=== PATIENT | male | born 1945 | race Two or more races ===

== ENCOUNTER 2022-09-11 20:21 | Inpatient (IN) | payer OTHER, MEDICAID ==
[~2022-09-11] VITALS: Ht 165.1 cm; Wt 72.5 kg
[2022-09-11 21:48] LABS: Basophils # (auto) 0.1 10 ^3/uL (0-0.2); Basophils % (auto) 0.8 % (0.0-2.0); Eosinophils # (auto) 0.7 10 ^3/uL (0-0.8); Eosinophils % (auto) 8.3 % (0.0-7.0); Hematocrit 40.5 % (41.0-53.0); Hemoglobin 13.3 g/dL (13.5-17.5); Lymphocytes # (auto) 2.2 10 ^3/uL (0.4-5.4); Lymphocytes % (auto) 26.9 % (10.0-50.0); Mean Corpuscular Hemoglobin 29.8 pg (28.0-32.0); Mean Corpuscular Hgb Conc. 32.9 g/dL (32.0-36.0); Mean Corpuscular Volume 90.6 fL (80.0-100.0); Monocytes # (auto) 0.8 10 ^3/uL (0-1.3); Monocytes % (auto) 9.2 % (0.0-12.0); Neutrophils # (auto) 4.6 10 ^3/uL (1.6-8.6); Neutrophils % (auto) 54.8 % (37.0-80.0); Nucleated Red Blood Cells % 0.3 %; Red Blood Cells 4.47 10^6/uL (4.5-5.90); Red Cell Distribution Width 13.9 % (11.8-14.3); White Blood Cell 8.3 10^3/uL (4.4-10.8)
[2022-09-11 22:04] LABS: Albumin 3.2 g/dL (3.4-5.0); Magnesium 2.2 mg/dL (1.6-2.6); Potassium 3.6 mmol/L (3.5-5.1)
[2022-09-11 22:06] LABS: BUN/Creatinine Ratio 9.1
[2022-09-11 22:09] LABS: Bilirubin, Total 0.4 mg/dL (0.2-1.0); INR 0.98 (0.9-1.15); Partial Thromboplastin Time 27.3 sec (24.6-33.4); Total Protein 6.2 g/dL (6.4-8.2)
[2022-09-12] MEDS ORDERED: IPRATROPIUM BROM 0.5 MG/2.5ML INH SOL NEB ONE (03:45)
[2022-09-12] MEDS ORDERED: ALBUTEROL SULF 2.5 MG/0.5ML(0.5%) NEB SOLN NEB ONE (03:45)
[2022-09-12] MEDS ORDERED: DexAMETHasone SOD PHOS 10MG/1ML VIAL INJ IV ONE (03:45)
[2022-09-12] MEDS ORDERED: MORPHINE SULFATE 4 MG/ML SYR/VIAL IV ONE (03:45)
[2022-09-12] MEDS ORDERED: ONDANSETRON HCL 4 MG/2 ML VIAL IV ONE (03:45)
[2022-09-12] MEDS ORDERED: ALBUTEROL MEDNEB 2.5 mg/3ml NEB ONE ×2 (03:55→06:00)
[2022-09-12 04:05] LABS: Urine Bacteria NONE SEEN /hpf (None Seen); Urine Blood Negative /uL (Negative); Urine Mucus FEW (None Seen); Urine Specific Gravity 1.032 (1.001-1.035); Urine WBC 3 /hpf (0 - 3)
[2022-09-12] MEDS ORDERED: DEXTROSE (50%) 50ML SYRG IV PRN (05:00)
[2022-09-12] MEDS ORDERED: cloNIDine HCL 0.1 MG TAB PO PRN (05:00)
[2022-09-12] MEDS ORDERED: ONDANSETRON HCL 4 MG/2 ML VIAL IV PRN (05:00)
[2022-09-12] MEDS ORDERED: TEMAZEPAM 15 MG CAP PO PRN (05:00)
[2022-09-12] MEDS: ALBUTEROL SULF 2.5 MG/0.5ML(0.5%) NEB SOLN NEB PRN (06:03)
[2022-09-12] MEDS: ACCU-CHEK COMFORT CURVE STRIP VI SCH ×4 (06:32→21:39)
[2022-09-12] MEDS: InsuLIN REG 1unit/0.01ml Soln (100units/ml) SC SCH ×4 (06:40→21:53)
[2022-09-12 07:05] VITALS: BP 125/48
[2022-09-12] MEDS: PANTOPRAZOLE 40 MG TAB PO SCH (09:10)
[2022-09-12] MEDS: ENOXAPARIN SOD 40 MG/0.4 ML SYRINGE SC SCH (09:10)
[2022-09-12] MEDS: ACETAMINOPHEN 325 MG TAB PO PRN (09:10)
[2022-09-12] MEDS: LISINOPRIL 10 MG TAB PO SCH (09:10)
[2022-09-12] MEDS: ASPirin 81 mg TAB PO SCH (09:10)
[2022-09-12 10:48] VITALS: BP 144/50
[2022-09-12] MEDS ORDERED: InsuLIN REG 1unit/0.01ml Soln (100units/ml) SC ONE (15:20)
[2022-09-12 16:30] VITALS: BP 123/55
[2022-09-12] MEDS: HYDROcodone-ACET 5/325MG TAB PO PRN ×2 (16:37→21:39)
[2022-09-12] MEDS: ATORVASTATIN 20 MG TAB PO SCH (21:39)
[2022-09-12] MEDS: INSULIN LANTUS (GLARGINE) 1 /0.01ml (100units/ml) SC SCH (21:53)
[2022-09-12 22:00] VITALS: BP 147/63
[2022-09-13 05:00] VITALS: BP 139/67
[2022-09-13] MEDS: ACCU-CHEK COMFORT CURVE STRIP VI SCH ×4 (06:19→21:44)
[2022-09-13] MEDS: InsuLIN REG 1unit/0.01ml Soln (100units/ml) SC SCH ×4 (06:26→21:50)
[2022-09-13 06:28] LABS: Basophils # (auto) 0 10 ^3/uL (0-0.2); Basophils % (auto) 0.2 % (0.0-2.0); Eosinophils # (auto) 0 10 ^3/uL (0-0.8); Eosinophils % (auto) 0.4 % (0.0-7.0); Hematocrit 41.3 % (41.0-53.0); Hemoglobin 13.9 g/dL (13.5-17.5); Lymphocytes % (auto) 17.3 % (10.0-50.0); Mean Corpuscular Hemoglobin 29.9 pg (28.0-32.0); Mean Corpuscular Hgb Conc. 33.6 g/dL (32.0-36.0); Monocytes # (auto) 0.8 10 ^3/uL (0-1.3); Monocytes % (auto) 6.9 % (0.0-12.0); Neutrophils # (auto) 8.8 10 ^3/uL (1.6-8.6); Neutrophils % (auto) 75.2 % (37.0-80.0); Nucleated Red Blood Cells % 0.1 %; Red Blood Cells 4.65 10^6/uL (4.5-5.90); Red Cell Distribution Width 13.9 % (11.8-14.3); White Blood Cell 11.8 10^3/uL (4.4-10.8)
[2022-09-13 06:40] LABS: Potassium 4.3 mmol/L (3.5-5.1)
[2022-09-13 06:44] LABS: Albumin 3.3 g/dL (3.4-5.0); BUN/Creatinine Ratio 17.8; Calcium 8.9 mg/dL (8.5-10.1)
[2022-09-13 06:47] LABS: Bilirubin, Total 0.8 mg/dL (0.2-1.0); Total Protein 6.3 g/dL (6.4-8.2)
[2022-09-13 09:00] VITALS: BP 120/47
[2022-09-13] MEDS ORDERED: ADENOSINE 60 MG in GIVE UN-DILUTED 0 ML IV ONE (09:15)
[2022-09-13] MEDS: HYDROcodone-ACET 5/325MG TAB PO PRN (10:05)
[2022-09-13] MEDS ORDERED: ALBUTEROL MEDNEB 2.5 mg/3ml NEB ONE (10:44)
[2022-09-13] MEDS: ALBUTEROL SULF 2.5 MG/0.5ML(0.5%) NEB SOLN NEB PRN (10:45)
[2022-09-13] MEDS: ASPirin 81 mg TAB PO SCH (11:27)
[2022-09-13] MEDS: PANTOPRAZOLE 40 MG TAB PO SCH (11:28)
[2022-09-13] MEDS: ENOXAPARIN SOD 40 MG/0.4 ML SYRINGE SC SCH (11:28)
[2022-09-13] MEDS: LISINOPRIL 10 MG TAB PO SCH (11:28)
[2022-09-13 11:35] LABS: Hepatitis C Antibody Negative (Negative)
[2022-09-13] MEDS ORDERED: KETOROLAC TROMETH 30 MG/ML 1ML VIAL IV ONE (11:45)
[2022-09-13 13:00] VITALS: BP 149/56
[2022-09-13 17:00] VITALS: BP 119/53
[2022-09-13] MEDS: ATORVASTATIN 20 MG TAB PO SCH (21:44)
[2022-09-13] MEDS: INSULIN LANTUS (GLARGINE) 1 /0.01ml (100units/ml) SC SCH (21:51)
[2022-09-13 22:00] VITALS: BP 135/53
[2022-09-13] MEDS: KETOROLAC TROMETH 30 MG/ML 1ML VIAL IV PRN (22:00)
[2022-09-14] VITALS (9 sets, daily range): BP systolic 103–145; BP diastolic 44–70
[2022-09-14] MEDS: ACCU-CHEK COMFORT CURVE STRIP VI SCH ×4 (06:15→21:29)
[2022-09-14] MEDS: InsuLIN REG 1unit/0.01ml Soln (100units/ml) SC SCH ×4 (06:15→21:38)
[2022-09-14 06:24] LABS: BUN/Creatinine Ratio 24.8; Calcium 8.5 mg/dL (8.5-10.1); Potassium 4.4 mmol/L (3.5-5.1)
[2022-09-14 06:30] LABS: Basophils # (auto) 0.1 10 ^3/uL (0-0.2); Basophils % (auto) 0.8 % (0.0-2.0); Eosinophils # (auto) 0.5 10 ^3/uL (0-0.8); Eosinophils % (auto) 4.8 % (0.0-7.0); Hematocrit 41.9 % (41.0-53.0); Hemoglobin 14.5 g/dL (13.5-17.5); Lymphocytes # (auto) 3.3 10 ^3/uL (0.4-5.4); Lymphocytes % (auto) 34.5 % (10.0-50.0); Mean Corpuscular Hemoglobin 30.8 pg (28.0-32.0); Mean Corpuscular Hgb Conc. 34.6 g/dL (32.0-36.0); Mean Corpuscular Volume 88.9 fL (80.0-100.0); Monocytes # (auto) 0.7 10 ^3/uL (0-1.3); Monocytes % (auto) 7.2 % (0.0-12.0); Neutrophils # (auto) 5.1 10 ^3/uL (1.6-8.6); Neutrophils % (auto) 52.7 % (37.0-80.0); Nucleated Red Blood Cells % 0.2 %; Red Blood Cells 4.72 10^6/uL (4.5-5.90); Red Cell Distribution Width 14.3 % (11.8-14.3); White Blood Cell 9.6 10^3/uL (4.4-10.8)
[2022-09-14 06:40] LABS: INR 0.95 (0.9-1.15); Partial Thromboplastin Time 27.2 sec (24.6-33.4)
[2022-09-14] MEDS: ACETAMINOPHEN 325 MG TAB PO PRN (08:00)
[2022-09-14] MEDS: LISINOPRIL 10 MG TAB PO SCH (10:00)
[2022-09-14] MEDS: ASPirin 81 mg TAB PO SCH (10:00)
[2022-09-14] MEDS: ENOXAPARIN SOD 40 MG/0.4 ML SYRINGE SC SCH (10:00)
[2022-09-14] MEDS ORDERED: LIDOCAINE 2%HCL (LOCAL ANESTH.) INJ 20ML MDV ONE (10:27)
[2022-09-14] MEDS ORDERED: VERAPAMIL 2.5MG/ML INJ 2ML VIAL IV ONE (10:27)
[2022-09-14] MEDS ORDERED: fentaNYL CITRATE 100 MCG/2 ML VL ONE ×2 (10:27→10:55)
[2022-09-14] MEDS ORDERED: MIDAZOLAM HCL 2MG/2ML 2ml VIAL (1mg/ml) ONE ×2 (10:27→10:56)
[2022-09-14] MEDS ORDERED: SODIUM CHL 0.9% 50 ML ONE (10:27)
[2022-09-14] MEDS ORDERED: ANGIOMAX 250 MG VIAL IV ONE (10:27)
[2022-09-14] MEDS ORDERED: IODIXANOL 320MG/ML 100ML BTL IV ONE (10:28)
[2022-09-14] MEDS ORDERED: HEPARIN SODIUM (PORCINE) 5000 UNITS/ML 1ML VIAL ONE (10:33)
[2022-09-14] MEDS ORDERED: METO25TA5 PO (10:49)
[2022-09-14] MEDS ORDERED: BENA20TA14 PO (10:49)
[2022-09-14] MEDS ORDERED: ATOR10TA52 PO (10:51)
[2022-09-14] MEDS ORDERED: PRED10TA PO (10:51)
[2022-09-14] MEDS ORDERED: ESCI5TAB PO (10:51)
[2022-09-14] MEDS ORDERED: ATROPINE SULF 1 MG/10ml SYR ONE (10:57)
[2022-09-14] MEDS: HYDROcodone-ACET 5/325MG TAB PO PRN (19:02)
[2022-09-14] MEDS: ATORVASTATIN 20 MG TAB PO SCH (21:29)
[2022-09-14] MEDS: INSULIN LANTUS (GLARGINE) 1 /0.01ml (100units/ml) SC SCH (21:49)
[2022-09-14] MEDS ORDERED: ALBUTEROL MEDNEB 2.5 mg/3ml NEB ONE (22:00)
[2022-09-14] MEDS: ALBUTEROL SULF 2.5 MG/0.5ML(0.5%) NEB SOLN NEB PRN (22:00)
[2022-09-15] VITALS (7 sets, daily range): BP systolic 114–138; BP diastolic 56–70
[2022-09-15] MEDS: InsuLIN REG 1unit/0.01ml Soln (100units/ml) SC SCH ×4 (06:22→21:50)
[2022-09-15] MEDS: ACCU-CHEK COMFORT CURVE STRIP VI SCH ×4 (06:23→21:49)
[2022-09-15] MEDS: KETOROLAC TROMETH 30 MG/ML 1ML VIAL IV PRN ×2 (06:24→19:59)
[2022-09-15] MEDS: ASPirin 81 mg TAB PO SCH (09:52)
[2022-09-15] MEDS: LISINOPRIL 10 MG TAB PO SCH (09:52)
[2022-09-15] MEDS: ENOXAPARIN SOD 40 MG/0.4 ML SYRINGE SC SCH (09:52)
[2022-09-15] MEDS: NITROGLYCERIN 0.4 MG SL TAB SL PRN ×6 (13:00→23:44)
[2022-09-15] MEDS: MORPHINE SULFATE INJ 2 MG/ml SYRG IV PRN ×2 (13:15→23:56)
[2022-09-15] MEDS ORDERED: RANOLAZINE ER 500 MG TAB PO ONE (13:15)
[2022-09-15 13:59] LABS: BUN/Creatinine Ratio 17.5; Calcium 8.6 mg/dL (8.5-10.1); Potassium 4.5 mmol/L (3.5-5.1)
[2022-09-15 14:35] LABS: Cholesterol 149 mg/dL (< 200)
[2022-09-15 14:36] LABS: HDL Cholesterol 41 mg/dL (40-59); LDL Cholesterol 96 mg/dL (< 100); Triglycerides 132 mg/dL (< 150)
[2022-09-15] MEDS: RANOLAZINE ER 500 MG TAB PO SCH (21:35)
[2022-09-15] MEDS: ATORVASTATIN 20 MG TAB PO SCH (21:36)
[2022-09-15] MEDS: HYDROcodone-ACET 5/325MG TAB PO PRN (21:37)
[2022-09-15] MEDS: INSULIN LANTUS (GLARGINE) 1 /0.01ml (100units/ml) SC SCH (21:52)
[2022-09-16 04:54] VITALS: BP 142/65
[2022-09-16] MEDS: InsuLIN REG 1unit/0.01ml Soln (100units/ml) SC SCH ×4 (06:55→21:43)
[2022-09-16] MEDS: ACCU-CHEK COMFORT CURVE STRIP VI SCH ×4 (06:55→21:33)
[2022-09-16 08:51] VITALS: BP 134/77
[2022-09-16] MEDS: LISINOPRIL 10 MG TAB PO SCH (09:54)
[2022-09-16] MEDS: ASPirin 81 mg TAB PO SCH (09:54)
[2022-09-16] MEDS: RANOLAZINE ER 500 MG TAB PO SCH ×2 (09:54→21:33)
[2022-09-16] MEDS: ENOXAPARIN SOD 40 MG/0.4 ML SYRINGE SC SCH (09:55)
[2022-09-16 13:00] VITALS: BP 108/60
[2022-09-16] MEDS ORDERED: FUROSEMIDE 40 MG/4 ML VIAL IV ONE (13:45)
[2022-09-16] MEDS ORDERED: ALBUTEROL MEDNEB 2.5 mg/3ml NEB NEB PRN (14:00)
[2022-09-16 17:00] VITALS: BP 116/47
[2022-09-16] MEDS: KETOROLAC TROMETH 30 MG/ML 1ML VIAL IV PRN (20:30)
[2022-09-16] MEDS: ATORVASTATIN 20 MG TAB PO SCH (21:32)
[2022-09-16] MEDS: INSULIN LANTUS (GLARGINE) 1 /0.01ml (100units/ml) SC SCH (21:34)
[2022-09-16 22:00] VITALS: BP 133/57
[2022-09-17] VITALS (44 sets, daily range): BP systolic 93–149; BP diastolic 33–116
[2022-09-17] MEDS: FUROSEMIDE 20 MG/2 ML VIAL IV SCH ×2 (05:34→18:30)
[2022-09-17] MEDS: KETOROLAC TROMETH 30 MG/ML 1ML VIAL IV PRN (05:42)
[2022-09-17] MEDS: ACCU-CHEK COMFORT CURVE STRIP VI SCH ×4 (06:09→22:13)
[2022-09-17] MEDS: InsuLIN REG 1unit/0.01ml Soln (100units/ml) SC SCH ×5 (06:09→22:12)
[2022-09-17] MEDS: NITROGLYCERIN 0.4 MG SL TAB SL PRN (09:20)
[2022-09-17] MEDS ORDERED: NITROGLYCERIN 0.2MG/HR TOPICAL PATCH TD SCH (10:00)
[2022-09-17] MEDS ORDERED: IPRATROPIUM BROM 0.5 MG/2.5ML INH SOL NEB PRN (11:15)
[2022-09-17] MEDS: RANOLAZINE ER 500 MG TAB PO SCH ×2 (11:49→22:07)
[2022-09-17] MEDS: LISINOPRIL 10 MG TAB PO SCH (11:50)
[2022-09-17] MEDS: ASPirin 81 mg TAB PO SCH (11:52)
[2022-09-17] MEDS: ENOXAPARIN SOD 40 MG/0.4 ML SYRINGE SC SCH (11:52)
[2022-09-17] MEDS ORDERED: HEPARIN DRIP/D5W 100UNITS/ML 250 ML IV SCH (12:15)
[2022-09-17] MEDS: NITROGLYCERIN 50MG/250ML 250 ML IV SCH (13:18)
[2022-09-17 13:32] LABS: Basophils # (auto) 0.1 10 ^3/uL (0-0.2); Basophils % (auto) 0.9 % (0.0-2.0); Eosinophils # (auto) 0.2 10 ^3/uL (0-0.8); Eosinophils % (auto) 2.4 % (0.0-7.0); Hematocrit 44.4 % (41.0-53.0); Hemoglobin 15.4 g/dL (13.5-17.5); Lymphocytes # (auto) 1.8 10 ^3/uL (0.4-5.4); Lymphocytes % (auto) 22.4 % (10.0-50.0); Mean Corpuscular Hemoglobin 30.7 pg (28.0-32.0); Mean Corpuscular Hgb Conc. 34.7 g/dL (32.0-36.0); Mean Corpuscular Volume 88.5 fL (80.0-100.0); Monocytes # (auto) 0.6 10 ^3/uL (0-1.3); Monocytes % (auto) 7.1 % (0.0-12.0); Neutrophils # (auto) 5.5 10 ^3/uL (1.6-8.6); Neutrophils % (auto) 67.2 % (37.0-80.0); Nucleated Red Blood Cells % 0.4 %; Red Blood Cells 5.02 10^6/uL (4.5-5.90); White Blood Cell 8.2 10^3/uL (4.4-10.8)
[2022-09-17 13:51] LABS: INR 1.02 (0.9-1.15); Partial Thromboplastin Time 29.3 sec (24.6-33.4)
[2022-09-17 13:53] LABS: Albumin 3.3 g/dL (3.4-5.0); Anion Gap 8 (5-15); Blood Urea Nitrogen 25 mg/dL (7-18); Calcium 8.8 mg/dL (8.5-10.1); Carbon Dioxide 30 mmol/L (21-32); Chloride 101 mmol/L (98-107); GFR African American 76 mL/min; GFR Non-African American 63 mL/min; Glucose 101 mg/dL (74-106); Potassium 4.5 mmol/L (3.5-5.1); Sodium 139 mmol/L (136-145)
[2022-09-17 13:56] LABS: Alanine Aminotransferase 74 U/L (16-61); Alkaline Phosphatase 112 U/L (45-117); Aspartate Aminotransferase 33 U/L (15-37); Bilirubin, Total 0.7 mg/dL (0.2-1.0); Total Protein 6.6 g/dL (6.4-8.2)
[2022-09-17] MEDS ORDERED: LIDOCAINE 1% (LOCAL ANESTH.) PF 5ml SDV ID ONE (14:45)
[2022-09-17] MEDS ORDERED: HEPARIN SODIUM (PORCINE) 5000 UNITS/ML 1ML VIAL IV ONE (15:00)
[2022-09-17] MEDS: HEPARIN DRIP/D5W 100UNITS/ML 250 ML IV SCH (15:36)
[2022-09-17] MEDS: ACETAMINOPHEN 325 MG TAB PO PRN (15:54)
[2022-09-17] MEDS: HYDROcodone-ACET 5/325MG TAB PO PRN (20:45)
[2022-09-17] MEDS: INSULIN LANTUS (GLARGINE) 1 /0.01ml (100units/ml) SC SCH (22:00)
[2022-09-17] MEDS: ATORVASTATIN 20 MG TAB PO SCH (22:07)
[2022-09-17] MEDS: SODIUM CHLOR 0.9% PF (SALINE LOCK) 10ML VIAL/SYR IV SCH (22:14)
[2022-09-17 22:28] LABS: INR 1.07 (0.9-1.15)
[2022-09-17 22:36] LABS: Partial Thromboplastin Time 88.3 sec (24.6-33.4)
[2022-09-18] VITALS (93 sets, daily range): BP systolic 92–148; BP diastolic 38–94
[2022-09-18] MEDS: ACETAMINOPHEN 325 MG TAB PO PRN ×2 (00:31→09:03)
[2022-09-18 06:12] LABS: INR 1.06 (0.9-1.15); Partial Thromboplastin Time 62.9 sec (24.6-33.4)
[2022-09-18 06:18] LABS: BUN/Creatinine Ratio 19.7; Calcium 8.8 mg/dL (8.5-10.1); Potassium 4.5 mmol/L (3.5-5.1)
[2022-09-18] MEDS: FUROSEMIDE 20 MG/2 ML VIAL IV SCH ×2 (06:18→18:26)
[2022-09-18] MEDS: InsuLIN REG 1unit/0.01ml Soln (100units/ml) SC SCH ×3 (07:30→22:30)
[2022-09-18] MEDS: ACCU-CHEK COMFORT CURVE STRIP VI SCH ×4 (07:44→22:29)
[2022-09-18] MEDS: ASPirin 81 mg TAB PO SCH (10:00)
[2022-09-18] MEDS: RANOLAZINE ER 500 MG TAB PO SCH ×2 (10:09→21:53)
[2022-09-18] MEDS: LISINOPRIL 10 MG TAB PO SCH (10:09)
[2022-09-18] MEDS: SODIUM CHLOR 0.9% PF (SALINE LOCK) 10ML VIAL/SYR IV SCH ×2 (10:09→22:02)
[2022-09-18 12:10] LABS: INR 1.06 (0.9-1.15); Partial Thromboplastin Time 57.4 sec (24.6-33.4)
[2022-09-18] MEDS: NITROGLYCERIN 50MG/250ML 250 ML IV SCH (12:15)
[2022-09-18] MEDS: HYDROcodone-ACET 5/325MG TAB PO PRN (12:23)
[2022-09-18 18:10] LABS: INR 1.08 (0.9-1.15); Partial Thromboplastin Time 51.2 sec (24.6-33.4)
[2022-09-18] MEDS: HEPARIN DRIP/D5W 100UNITS/ML 250 ML IV SCH (18:28)
[2022-09-18] MEDS ORDERED: TEMAZEPAM 15 MG CAP PO PRN (21:00)
[2022-09-18] MEDS: METOCLOPRAMIDE HCL 10 MG TAB PO SCH (21:54)
[2022-09-18] MEDS: ATORVASTATIN 20 MG TAB PO SCH (21:54)
[2022-09-18] MEDS: DOCUSATE SOD 100 MG CAP PO SCH (21:55)
[2022-09-18] MEDS ORDERED: AMITRIPTYLINE HCL 10 MG TAB PO SCH (22:00)
[2022-09-18] MEDS: SODIUM CHLORIDE 0.9% 1,000 ML IV SCH (22:01)
[2022-09-18] MEDS: INSULIN LANTUS (GLARGINE) 1 /0.01ml (100units/ml) SC SCH (22:30)
[2022-09-19] VITALS (56 sets, daily range): BP systolic 91–149; BP diastolic 36–75
[2022-09-19 04:37] LABS: INR 1.03 (0.9-1.15); Partial Thromboplastin Time 50.9 sec (24.6-33.4)
[2022-09-19 04:45] LABS: Anion Gap 4 (5-15); BUN/Creatinine Ratio 20.4; Blood Urea Nitrogen 22 mg/dL (7-18); Calcium 8.3 mg/dL (8.5-10.1); Carbon Dioxide 28 mmol/L (21-32); Chloride 103 mmol/L (98-107); GFR African American 85 mL/min; GFR Non-African American 70 mL/min; Glucose 113 mg/dL (74-106); Sodium 135 mmol/L (136-145)
[2022-09-19] MEDS: FUROSEMIDE 20 MG/2 ML VIAL IV SCH (06:10)
[2022-09-19] MEDS: METOCLOPRAMIDE HCL 10 MG TAB PO SCH ×2 (06:11→14:00)
[2022-09-19] MEDS: ACCU-CHEK COMFORT CURVE STRIP VI SCH ×2 (06:47→11:49)
[2022-09-19] MEDS: InsuLIN REG 1unit/0.01ml Soln (100units/ml) SC SCH ×2 (06:47→11:58)
[2022-09-19] MEDS: SODIUM CHLORIDE 0.9% 1,000 ML IV SCH (06:47)
[2022-09-19] MEDS: ASPirin 81 mg TAB PO SCH (10:00)
[2022-09-19] MEDS ORDERED: DexAMETHasone INJECTION 10 MG in D5W 5% 50 ML IV SCH (10:00)
[2022-09-19] MEDS: DOCUSATE SOD 100 MG CAP PO SCH (10:27)
[2022-09-19] MEDS: RANOLAZINE ER 500 MG TAB PO SCH (10:27)
[2022-09-19] MEDS: LISINOPRIL 10 MG TAB PO SCH (10:28)
[2022-09-19] MEDS: SODIUM CHLOR 0.9% PF (SALINE LOCK) 10ML VIAL/SYR IV SCH (10:28)
[2022-09-19] MEDS: NITROGLYCERIN 50MG/250ML 250 ML IV SCH (12:15)
[2022-09-19] MEDS: HEPARIN DRIP/D5W 100UNITS/ML 250 ML IV SCH (13:00)
[2022-09-19] MEDS: MORPHINE SULFATE INJ 2 MG/ml SYRG IV PRN (14:29)
== END 2022-09-19 14:46 | disposition short-term general hospital (02) | DRG 281 ==
LOC: EDBD 20:21 → ER 20:30 → TELE 09-12 04:50 → TELE-E-ADS 09-12 10:05 → TELE-WESTW 09-12 10:24 → ICU WEST 09-17 12:57
PROVIDERS: ADMIT Nurse Practitioner; ATTEND Internal Medicine
PROC: 4A023N7 Measurement of Cardiac Sampling and Pressure, Left Heart, Percutaneous Approach (ICD-10-PCS; principal; 2022-09-14)
PROC: B211YZZ Fluoroscopy of Multiple Coronary Arteries using Other Contrast (ICD-10-PCS; 2022-09-14)
PROC: B215YZZ Fluoroscopy of Left Heart using Other Contrast (ICD-10-PCS; 2022-09-14)
PROC: 05HY33Z Insertion of Infusion Device into Upper Vein, Percutaneous Approach (ICD-10-PCS; 2022-09-17)
PROC: B54MZZA Ultrasonography of Right Upper Extremity Veins, Guidance (ICD-10-PCS; 2022-09-17)
DX: I21.4 Non-ST elevation (NSTEMI) myocardial infarction (principal); I69.354 Hemiplegia and hemiparesis following cerebral infarction affecting left non-dominant side; I25.110 Atherosclerotic heart disease of native coronary artery with unstable angina pectoris; E78.5 Hyperlipidemia, unspecified; E83.51 Hypocalcemia; E11.65 Type 2 diabetes mellitus with hyperglycemia; E88.09 Other disorders of plasma-protein metabolism, not elsewhere classified; E87.8 Other disorders of electrolyte and fluid balance, not elsewhere classified; D64.9 Anemia, unspecified; G43.109 Migraine with aura, not intractable, without status migrainosus; J44.9 Chronic obstructive pulmonary disease, unspecified; Z20.822 Contact with and (suspected) exposure to COVID-19; I10 Essential (primary) hypertension; Z79.84 Long term (current) use of oral hypoglycemic drugs; I25.2 Old myocardial infarction; Z79.82 Long term (current) use of aspirin; Z79.899 Other long term (current) drug therapy; Z82.49 Family history of ischemic heart disease and other diseases of the circulatory system; Z83.3 Family history of diabetes mellitus; Z95.1 Presence of aortocoronary bypass graft; Z95.5 Presence of coronary angioplasty implant and graft
CPT/HCPCS: 36415; 36569; 70450; 71045; 78452; 80048; 80053; 80061; 81001; 82962; 83036; 83735; 83880; 84443; 84484; 85025; 85379; 85610; 85730; 86803; 87081; 87340; 87426; 93005; 93017; 93306; 93458; 94640; 96374; 99152; 99153; 99291; C1887; G0378; J0153; J1100; J1815; J1885; J2250; J2405; J7060; Q9967

== ENCOUNTER 2022-11-18 18:44 | Inpatient (IN) | payer OTHER, MEDICAID ==
[~2022-11-18] VITALS: Ht 160 cm; Wt 70.0 kg
[~2022-11-18 18:44] MED LIST: ATOR10TA52 PO; BENA20TA14 PO; ESCI5TAB PO; METO25TA5 PO; PRED10TA PO
[2022-11-19] MEDS ORDERED: DEXTROSE (50%) 50ML SYRG IV PRN (10:30)
[2022-11-19 13:00] VITALS: BP 141/72
[2022-11-19 13:06] VITALS: BP 136/78
[2022-11-19 13:08] VITALS: BP 141/72
[2022-11-19] MEDS: ACCU-CHEK COMFORT CURVE STRIP VI SCH ×3 (14:00→22:16)
[2022-11-19] MEDS: InsuLIN REG 1unit/0.01ml Soln (100units/ml) SC SCH ×3 (14:00→22:16)
[2022-11-19 14:45] VITALS: BP 132/79
[2022-11-19 17:03] VITALS: BP 136/78
[2022-11-19] MEDS: HYDROcodone-ACET 5/325MG TAB PO PRN (18:22)
[2022-11-19 22:00] VITALS: BP 146/69
[2022-11-19] MEDS: METOPROLOL TARTRATE 25 MG TAB PO SCH (22:15)
[2022-11-19 23:18] LABS: Folate (Folic Acid) 10.46 ng/mL (5.38-24)
[2022-11-20] MEDS: HYDROcodone-ACET 5/325MG TAB PO PRN ×2 (01:18→09:46)
[2022-11-20 05:14] VITALS: BP 133/54
[2022-11-20] MEDS: ACCU-CHEK COMFORT CURVE STRIP VI SCH ×4 (06:02→22:43)
[2022-11-20] MEDS: METOCLOPRAMIDE HCL 10 MG TAB PO SCH ×2 (06:02→14:45)
[2022-11-20] MEDS: InsuLIN REG 1unit/0.01ml Soln (100units/ml) SC SCH ×4 (06:03→22:45)
[2022-11-20 09:00] VITALS: BP 140/72
[2022-11-20] MEDS: METOPROLOL TARTRATE 25 MG TAB PO SCH ×2 (09:45→22:43)
[2022-11-20] MEDS ORDERED: ASPirin 81 mg TAB PO SCH (10:00)
[2022-11-20] MEDS ORDERED: DexAMETHasone INJECTION 10 MG in D5W 5% 50 ML IV SCH (10:00)
[2022-11-20 11:41] VITALS: BP 145/83
[2022-11-20 16:07] VITALS: BP 127/70
[2022-11-20] MEDS ORDERED: KETOROLAC TROMETH 30 MG/ML 1ML VIAL IV ONE (18:45)
[2022-11-20] MEDS: LOSARTAN POTASSIUM 25 MG TAB PO SCH (19:26)
[2022-11-20] MEDS: FUROSEMIDE 20 MG TAB PO SCH (19:27)
[2022-11-20] MEDS ORDERED: NAPROXEN 500 MG TAB PO PRN (20:30)
[2022-11-20] MEDS ORDERED: DexAMETHasone SOD PHOS 10MG/1ML VIAL INJ IV ONE (20:45)
[2022-11-20 21:24] LABS: Urine Bacteria NONE SEEN /hpf (None Seen); Urine Blood Negative /uL (Negative); Urine Specific Gravity 1.009 (1.001-1.035); Urine WBC <1 /hpf (0 - 3)
[2022-11-20 22:00] VITALS: BP 122/63
[2022-11-20] MEDS ORDERED: ATORVASTATIN 20 MG TAB PO SCH (22:00)
[2022-11-20] MEDS ORDERED: AMITRIPTYLINE HCL 10 MG TAB PO SCH (22:00)
[2022-11-20] MEDS: MEMANTINE HCL 5 MG TAB PO SCH (22:43)
[2022-11-20] MEDS: RANOLAZINE ER 500 MG TAB PO SCH (22:43)
[2022-11-21 05:00] VITALS: BP 132/62
[2022-11-21 05:35] LABS: Basophils # (auto) 0.1 10 ^3/uL (0-0.2); Basophils % (auto) 0.8 % (0.0-2.0); Eosinophils # (auto) 0 10 ^3/uL (0-0.8); Hemoglobin 15.1 g/dL (13.5-17.5); Lymphocytes # (auto) 1.2 10 ^3/uL (0.4-5.4); Mean Corpuscular Hemoglobin 28.3 pg (28.0-32.0); Mean Corpuscular Hgb Conc. 33.5 g/dL (32.0-36.0); Mean Corpuscular Volume 84.6 fL (80.0-100.0); Monocytes # (auto) 0.1 10 ^3/uL (0-1.3); Monocytes % (auto) 0.6 % (0.0-12.0); Neutrophils # (auto) 13.3 10 ^3/uL (1.6-8.6); Neutrophils % (auto) 90.6 % (37.0-80.0); Nucleated Red Blood Cells % 0.1 %; Red Blood Cells 5.32 10^6/uL (4.5-5.90); Red Cell Distribution Width 13.9 % (11.8-14.3); White Blood Cell 14.7 10^3/uL (4.4-10.8)
[2022-11-21 05:53] LABS: Potassium 4.9 mmol/L (3.5-5.1)
[2022-11-21 06:01] LABS: Albumin 3.3 g/dL (3.4-5.0); BUN/Creatinine Ratio 19.6 (10.0-20.0); Bilirubin, Total 0.6 mg/dL (0.2-1.0); CRP High Sensitivity 0.08 mg/dL (< 0.3); Calcium 9.9 mg/dL (8.5-10.1); Total Protein 6.5 g/dL (6.4-8.2)
[2022-11-21] MEDS: FUROSEMIDE 20 MG TAB PO SCH ×2 (06:03→18:00)
[2022-11-21] MEDS: ACCU-CHEK COMFORT CURVE STRIP VI SCH ×3 (06:03→17:00)
[2022-11-21] MEDS: InsuLIN REG 1unit/0.01ml Soln (100units/ml) SC SCH ×3 (06:04→17:00)
[2022-11-21 08:39] VITALS: BP 133/65
[2022-11-21] MEDS ORDERED: CLOPIDOGREL BISULFATE 75 MG TAB PO SCH (10:00)
[2022-11-21] MEDS ORDERED: DexAMETHasone INJECTION 10 MG in D5W 5% 50 ML IV SCH (10:00)
[2022-11-21] MEDS ORDERED: DexAMETHasone SOD PHOS 10MG/1ML VIAL INJ IV SCH (10:00)
[2022-11-21] MEDS: MEMANTINE HCL 5 MG TAB PO SCH (11:02)
[2022-11-21] MEDS: RANOLAZINE ER 500 MG TAB PO SCH (11:02)
[2022-11-21] MEDS: METOPROLOL TARTRATE 25 MG TAB PO SCH (11:02)
[2022-11-21 13:00] VITALS: BP 122/68
[2022-11-21 15:52] VITALS: BP 131/69
[2022-11-21] MEDS ORDERED: ESCI10TA PO (16:22)
[2022-11-21] MEDS ORDERED: RANO500T PO (16:22)
[2022-11-21] MEDS ORDERED: CLOP75TA70 PO (16:22)
[2022-11-21] MEDS ORDERED: DONE5TAB11 PO (16:22)
[2022-11-21] MEDS ORDERED: BENA20TA14 PO (16:22)
[2022-11-21] MEDS ORDERED: FURO1TAB31 PO (16:22)
[2022-11-21 17:11] VITALS: BP 133/65
[2022-11-21] MEDS: LOSARTAN POTASSIUM 25 MG TAB PO SCH (18:00)
== END 2022-11-21 18:25 | disposition home or self-care (01) | DRG 313 ==
LOC: EAST 11-19 13:10 → TELE-EAST 11-19 16:09
PROVIDERS: ADMIT Internal Medicine; ATTEND Hospitalist
DX: R07.89 Other chest pain (principal); G93.41 Metabolic encephalopathy; D64.9 Anemia, unspecified; E11.65 Type 2 diabetes mellitus with hyperglycemia; E78.5 Hyperlipidemia, unspecified; G30.9 Alzheimer's disease, unspecified; G43.109 Migraine with aura, not intractable, without status migrainosus; I50.9 Heart failure, unspecified; I25.10 Atherosclerotic heart disease of native coronary artery without angina pectoris; I11.0 Hypertensive heart disease with heart failure; J44.9 Chronic obstructive pulmonary disease, unspecified; K59.00 Constipation, unspecified; F01.50 Vascular dementia, unspecified severity, without behavioral disturbance, psychotic disturbance, mood disturbance, and anxiety; Z63.4 Disappearance and death of family member; Z79.82 Long term (current) use of aspirin; Z79.899 Other long term (current) drug therapy; Z82.49 Family history of ischemic heart disease and other diseases of the circulatory system; Z86.73 Personal history of transient ischemic attack (TIA), and cerebral infarction without residual deficits; Z88.6 Allergy status to analgesic agent; Z95.1 Presence of aortocoronary bypass graft; Z88.8 Allergy status to other drugs, medicaments and biological substances; Z98.61 Coronary angioplasty status
CPT/HCPCS: 36415; 70551; 80053; 81001; 82607; 82746; 82962; 84484; 85025; 85652; 86141; 87086; 95819; 97163; G0378; J1100; J1815; J1885; J7060

== ENCOUNTER 2024-05-18 09:34 | Inpatient (IN) | payer OTHER, MEDICAID ==
[~2024-05-18] VITALS: Ht 160 cm; Wt 66.5 kg
[~2024-05-18 09:34] MED LIST changes: +BENA-36 PO; -BENA20TA14 PO; +CLOP75TA70 PO; +DONE5TAB11 PO; +ESCI10TA PO; -ESCI5TAB PO; +FURO1TAB31 PO; +HYDR1CAP27 PO; +INSUINJ37 SC; -PRED10TA PO; +QUET50TA81 PO; +RANO500T PO
[2024-05-18 09:50] VITALS: RESP 16
[2024-05-18 10:00] LABS: Basophils # (auto) 0.1 10 ^3/uL (0-0.2); Basophils % (auto) 1.1 % (0.0-2.0); Eosinophils # (auto) 0.2 10 ^3/uL (0-0.8); Eosinophils % (auto) 1.5 % (0.0-7.0); Hematocrit 50.2 % (41.0-53.0); Hemoglobin 17.4 g/dL (13.5-17.5); Lymphocytes # (auto) 2.8 10 ^3/uL (0.4-5.4); Lymphocytes % (auto) 26.6 % (10.0-50.0); Mean Corpuscular Hemoglobin 30.8 pg (28.0-32.0); Mean Corpuscular Hgb Conc. 34.5 g/dL (32.0-36.0); Mean Corpuscular Volume 89.2 fL (80.0-100.0); Monocytes # (auto) 0.6 10 ^3/uL (0-1.3); Neutrophils # (auto) 6.8 10 ^3/uL (1.6-8.6); Neutrophils % (auto) 64.8 % (37.0-80.0); Nucleated Red Blood Cells % 0.1 %; Platelet Count (auto) 247 10^3/uL (140-450); Red Blood Cells 5.63 10^6/uL (4.5-5.90); Red Cell Distribution Width 13.8 % (11.8-14.3); White Blood Cell 10.4 10^3/uL (4.4-10.8)
[2024-05-18 10:20] LABS: Alanine Aminotransferase 40 U/L (7-40); Albumin 4.6 g/dL (3.2-4.8); Alkaline Phosphatase 125 U/L (46-116); Anion Gap 4 (5-15); Aspartate Aminotransferase 31 U/L (13-40); BUN/Creatinine Ratio 8.3 (10.0-20.0); Blood Urea Nitrogen 9 mg/dL (9-23); Calcium 9.8 mg/dL (8.7-10.4); Carbon Dioxide 30 mmol/L (20-31); Chloride 106 mmol/L (98-107); Glucose 136 mg/dL (74-106); Potassium 4.7 mmol/L (3.5-5.1); Sodium 140 mmol/L (136-145)
[2024-05-18 10:21] LABS: Bilirubin, Total 1.2 mg/dL (0.2-1.0); Total Protein 7.3 g/dL (5.7-8.2)
[2024-05-18 10:33] VITALS: PULSE 55; RESP 14; O2SAT 96
[2024-05-18] MEDS: DOPamine 1600MCG/ML D5W 250 ML IV SCH ×2 (11:30→22:11)
[2024-05-18] MEDS: DOPamine 1600MCG/ML D5W 250 ML IV ONE (11:47)
[2024-05-18] MEDS ORDERED: MORPHINE SULFATE INJ 2 MG/ml SYRG IV PRN (16:45)
[2024-05-18] MEDS ORDERED: NITROGLYCERIN 0.4 MG SL TAB SL PRN ×2 (16:45→22:00)
[2024-05-18] MEDS ORDERED: ATORVASTATIN 20 MG TAB PO SCH (22:00)
[2024-05-18] MEDS ORDERED: RANOLAZINE ER 500 MG TAB PO SCH (22:00)
[2024-05-18] MEDS: RANOLAZINE ER 500 MG TAB PO SCH (22:11)
[2024-05-18 22:19] VITALS: PULSE 71; RESP 12; O2SAT 98
[2024-05-19 05:12] LABS: Basophils # (auto) 0.1 10 ^3/uL (0-0.2); Basophils % (auto) 0.8 % (0.0-2.0); Eosinophils # (auto) 0.1 10 ^3/uL (0-0.8); Eosinophils % (auto) 1.2 % (0.0-7.0); Hematocrit 47.7 % (41.0-53.0); Hemoglobin 16.5 g/dL (13.5-17.5); Lymphocytes # (auto) 2.3 10 ^3/uL (0.4-5.4); Lymphocytes % (auto) 29.8 % (10.0-50.0); Mean Corpuscular Hemoglobin 30.7 pg (28.0-32.0); Mean Corpuscular Hgb Conc. 34.6 g/dL (32.0-36.0); Mean Corpuscular Volume 88.7 fL (80.0-100.0); Monocytes # (auto) 0.6 10 ^3/uL (0-1.3); Neutrophils # (auto) 4.7 10 ^3/uL (1.6-8.6); Neutrophils % (auto) 60.2 % (37.0-80.0); Nucleated Red Blood Cells % 0.1 %; Platelet Count (auto) 215 10^3/uL (140-450); Red Blood Cells 5.37 10^6/uL (4.5-5.90); Red Cell Distribution Width 13.6 % (11.8-14.3); White Blood Cell 7.8 10^3/uL (4.4-10.8)
[2024-05-19 05:19] LABS: Anion Gap 6 (5-15); Carbon Dioxide 30 mmol/L (20-31); Chloride 105 mmol/L (98-107); Potassium 4.1 mmol/L (3.5-5.1); Sodium 141 mmol/L (136-145)
[2024-05-19 05:21] LABS: Calcium 9.8 mg/dL (8.7-10.4)
[2024-05-19 05:26] LABS: Blood Urea Nitrogen 13 mg/dL (9-23); Glucose 144 mg/dL (74-106)
[2024-05-19 06:14] LABS: BUN/Creatinine Ratio 12.5 (10.0-20.0)
[2024-05-19 08:00] VITALS: PULSE 63; RESP 15; O2SAT 95
[2024-05-19] MEDS ORDERED: BENAZEPRIL HCL 10 MG TAB PO SCH (10:00)
[2024-05-19] MEDS ORDERED: PATIENTS OWN MEDICATION (Benazepril Hcl 20 MG) PO SCH (10:00)
[2024-05-19] MEDS ORDERED: DONEPEZIL HYDROCHLORIDE 5 MG TAB PO SCH (10:00)
[2024-05-19] MEDS ORDERED: PATIENTS OWN MEDICATION (Escitalopram Oxalate (Lexapro) 1 TAB) PO SCH (10:00)
[2024-05-19] MEDS ORDERED: CITALOPRAM HYDROBR 20 MG TAB PO SCH (10:00)
[2024-05-19] MEDS ORDERED: PATIENTS OWN MEDICATION (Atorvastatin Calcium 1 TAB) PO SCH (10:00)
[2024-05-19] MEDS ORDERED: FUROSEMIDE 40 MG TAB PO SCH (10:00)
[2024-05-19] MEDS: FUROSEMIDE 40 MG TAB PO SCH (10:11)
[2024-05-19] MEDS: BENAZEPRIL HCL 10 MG TAB PO SCH (10:12)
[2024-05-19] MEDS: DONEPEZIL HYDROCHLORIDE 5 MG TAB PO SCH (10:12)
[2024-05-19] MEDS: CITALOPRAM HYDROBR 20 MG TAB PO SCH (10:12)
[2024-05-19 10:28] VITALS: PULSE 61; RESP 11; O2SAT 99
[2024-05-19 12:51] LABS: Urine Bacteria FEW /hpf (None Seen); Urine Blood TRACE /uL (Negative); Urine Clarity Turbid (Clear); Urine Color Yellow (Yellow); Urine Mucus FEW (None Seen); Urine Protein, UAD TRACE (Negative); Urine Specific Gravity 1.019 (1.001-1.035); Urine Urobilinogen Normal (Negative); Urine WBC 23 /hpf (0 - 3)
[2024-05-19] MEDS: MORPHINE SULFATE INJ 2 MG/ml SYRG IV PRN (20:28)
[2024-05-19 20:44] VITALS: O2SAT 100
[2024-05-19] MEDS: ATORVASTATIN 20 MG TAB PO SCH (21:35)
[2024-05-19 22:00] VITALS: BP 125/98; PULSE 59; RESP 20; TEMP 98.2; O2SAT 100
[2024-05-20] VITALS (8 sets, daily range): BP systolic 109–140; BP diastolic 52–87; PULSE 57–120; RESP 18–20; TEMP 97.7–98.7; O2SAT 94–100
[2024-05-20] MEDS: CLOPIDOGREL BISULFATE 75 MG TAB PO ONE (17:14)
[2024-05-21] VITALS (8 sets, daily range): BP systolic 95–153; BP diastolic 52–82; PULSE 53–80; RESP 18–22; TEMP 97.5–98.3; O2SAT 97–100
[2024-05-21] MEDS: CLOPIDOGREL BISULFATE 75 MG TAB PO SCH (09:44)
[2024-05-21] MEDS ORDERED: DEXTROSE (50%) 50ML SYRG IV PRN (12:45)
[2024-05-21] MEDS: ACETAMINOPHEN 325 MG TAB PO PRN (12:59)
[2024-05-21] MEDS: SODIUM CHLORIDE 0.9% 250 ML IV ONE (13:00)
[2024-05-21] MEDS: cefTRIAXone 1GM/50ML D5W 50 ML IV ONE (13:00)
[2024-05-21] MEDS: InsuLIN REG 1unit/0.01ml Soln (100units/ml) SC SCH (17:00)
[2024-05-21] MEDS: ACCU-CHEK COMFORT CURVE STRIP VI SCH (17:00)
[2024-05-21] MEDS: SULFAMETHOX W/TRIMETH(800/160MG) DS TAB PO SCH (21:17)
[2024-05-22] VITALS (8 sets, daily range): BP systolic 111–156; BP diastolic 48–77; PULSE 51–84; RESP 16–94; TEMP 97.5–98.4; O2SAT 94–99
[2024-05-22] MEDS: BENAZEPRIL HCL 10 MG TAB PO SCH (08:52)
[2024-05-22 11:25] LABS: Basophils # (auto) 0.1 10 ^3/uL (0-0.2); Basophils % (auto) 0.8 % (0.0-2.0); Eosinophils # (auto) 0.1 10 ^3/uL (0-0.8); Eosinophils % (auto) 1.8 % (0.0-7.0); Hemoglobin 15.6 g/dL (13.5-17.5); Lymphocytes # (auto) 2.3 10 ^3/uL (0.4-5.4); Lymphocytes % (auto) 34.9 % (10.0-50.0); Mean Corpuscular Hemoglobin 30.3 pg (28.0-32.0); Mean Corpuscular Hgb Conc. 33.8 g/dL (32.0-36.0); Mean Corpuscular Volume 89.5 fL (80.0-100.0); Monocytes # (auto) 0.5 10 ^3/uL (0-1.3); Monocytes % (auto) 7.8 % (0.0-12.0); Neutrophils # (auto) 3.5 10 ^3/uL (1.6-8.6); Neutrophils % (auto) 54.7 % (37.0-80.0); Nucleated Red Blood Cells % 0.1 %; Platelet Count (auto) 225 10^3/uL (140-450); Red Blood Cells 5.14 10^6/uL (4.5-5.90); Red Cell Distribution Width 13.6 % (11.8-14.3); White Blood Cell 6.5 10^3/uL (4.4-10.8)
[2024-05-22 11:38] LABS: Alanine Aminotransferase 21 U/L (7-40); Alkaline Phosphatase 105 U/L (46-116); Anion Gap 7 (5-15); Aspartate Aminotransferase 15 U/L (13-40); BUN/Creatinine Ratio 12.1 (10.0-20.0); Bilirubin, Total 1.3 mg/dL (0.2-1.0); Blood Urea Nitrogen 13 mg/dL (9-23); Calcium 9.2 mg/dL (8.7-10.4); Carbon Dioxide 27 mmol/L (20-31); Chloride 106 mmol/L (98-107); Glucose 120 mg/dL (74-106); Sodium 140 mmol/L (136-145); Total Protein 6.5 g/dL (5.7-8.2)
[2024-05-23] VITALS (10 sets, daily range): BP systolic 125–165; BP diastolic 46–80; PULSE 51–95; RESP 16–20; TEMP 97.7–98.4; O2SAT 96–100
[2024-05-23] MEDS: HYDROcodone-ACET 5/325MG TAB PO PRN (09:39)
[2024-05-24 01:00] VITALS: BP 151/69; PULSE 73; RESP 18; TEMP 98; O2SAT 99
[2024-05-24 05:00] VITALS: BP 139/55; PULSE 66; RESP 17; TEMP 97.8; O2SAT 99
[2024-05-24 09:00] VITALS: BP 103/64; PULSE 66; RESP 21; TEMP 97.6; O2SAT 99
[2024-05-24 13:00] VITALS: BP 147/70; PULSE 58; RESP 17; TEMP 97.8; O2SAT 98
[2024-05-24] MEDS: INFLUENZA TRIVALENT 2024-2025 0.5 ML INJ IM ONE (13:06)
== END 2024-05-24 13:15 | DRG 392 ==
LOC: ER 09:34 → TELE 16:32 → ER 16:34 → TELE-CENTR 05-19 21:12
PROVIDERS: ADMIT Hospitalist; ATTEND Internal Medicine
DX: K52.9 Noninfective gastroenteritis and colitis, unspecified (principal); N39.0 Urinary tract infection, site not specified; I25.10 Atherosclerotic heart disease of native coronary artery without angina pectoris; R00.1 Bradycardia, unspecified; K40.90 Unilateral inguinal hernia, without obstruction or gangrene, not specified as recurrent; E11.9 Type 2 diabetes mellitus without complications; T50.995A Adverse effect of other drugs, medicaments and biological substances, initial encounter; I10 Essential (primary) hypertension; J44.9 Chronic obstructive pulmonary disease, unspecified; E78.5 Hyperlipidemia, unspecified; Z95.1 Presence of aortocoronary bypass graft; Z79.899 Other long term (current) drug therapy; Z79.84 Long term (current) use of oral hypoglycemic drugs; Z79.02 Long term (current) use of antithrombotics/antiplatelets; Z95.5 Presence of coronary angioplasty implant and graft; Z86.73 Personal history of transient ischemic attack (TIA), and cerebral infarction without residual deficits; Y92.89 Other specified places as the place of occurrence of the external cause; Z79.82 Long term (current) use of aspirin
CPT/HCPCS: 36415; 70551; 71045; 74176; 76705; 80048; 80053; 81001; 82962; 84439; 84443; 84484; 85025; 93005; 93306; 96365; 97110; 97116; 97162; 97530; 99291; G0378; J1815

== ENCOUNTER 2024-06-18 11:49 | Inpatient (IN) | payer OTHER, MEDICAID ==
[~2024-06-18] VITALS: Ht 165.1 cm; Wt 67.6 kg
[~2024-06-18 11:49] MED LIST changes: -METO25TA5 PO
--- NOTE | 2024-06-18 12:17 | ED.PDOC ---
HPI Comments HPI: Poor Historian. 78 y.o male presents to the ED via EMS for a chief complaint of chest wall pain that started one day ago. Patient reported a 7/10 substernal chest pain and worsens on deep respiration. EMS reports patient was admitted at this facility on 05/22/24, was transferred to a rehab facility and discharged on 06/12/24. Today, patient's home health nurse stopped by his home today and patient complained of chest pain during assessment, prompting 911 call. Patient is alert and orientated x 1 per EMS which is his normal baseline due to hx of dementia. Patient is able to pin point pain region upon ED arrival. No nausea, vomiting, diarrhea, fever, chills reported. Patient reports allergies to aspirin and penicillins Vital Signs BP: 144/56 HR:50 Temp:98 F SPO2: 98% RA RR: 18 Past medical history: On plavix, Dementia, DM, hyperlipidemia, HTN, CVA, COPD Past surgical history: PTCA REVIEW OF SYSTEMS: CONSTITUTIONAL: Denies acute: fever, diaphoresis, chills, generalized weakness. HEAD: Denies acute: headache, photophobia Eyes: Denies acute: Double vision, vision loss, eye pain, eye discharge. EARS: Denies acute: tinnitus, hearing loss, ear discharge, ear pain, THROAT: Denies acute: sore throat, swelling, difficulty swallowing , pain with swallowing, change in voice. NECK: Denies acute: neck pain, neck swelling, stiff neck. HEART: Denies acute : palpitations, LUNGS: Denies acute: SOB, wheezing, cough, hemoptysis ABDOMEN: Denies acute: abdominal pain, Nausea, Vomiting, diarrhea, melena , hematemesis, hematochezia SKIN: Denies acute: rash, redness, lesions, itchiness. EXTREMITIES: Denies acute: calf pain, numbness, tingling, weakness, denies pain in extremity. Denies acute: Low back pain. Neuro: Denies acute: focal neurological deficit, motor or sensory focal neurological deficit, tremors, seizure like activity, confusion, dizziness, change in mental status, loss of bowel or bladder function, cauda equina like symptoms. : Denies acute: dysuria, hematuria, flank pain, increase in urinary frequency. PSYCH: Denies acute: hallucination, suicidal ideation, homicidal ideation. PHYSICAL EXAM: General: no acute distress, awake and alert. Head: normocephalic, atraumatic. Neck: supple, trachea is midline, no swelling. Throat: Normal phonation. Eyes:, no erythema, no purulent discharge, no proptosis, no icterus. Heart: regular rate, regular rhythm, no significant murmur appreciated. Lungs: no apparent respiratory distress, Able to speak in full sentences. No wheezing, no rhonchi, no crackles. No stridors Clear to auscultation bilaterally. Abdomen: non tender to palpation, non distended, soft, no guarding, no rebound, + bowel sounds. Neuro: Awake, Alert, oriented to name, self, situation, follows commands GCS=15. Speech is normal. Skin: no petechia, no purpura, no cyanosis, non-pale, not jaundice. Lower extremities: --trace bilateral - Pitting edema no deformity, no focal swelling, no calf TTP. Makes eye contact. moves all four extremities. Face: no apparent facial droop. Chief Complaint: Chest Pain Time Seen by MD: 11:52 Primary Care Provider: MERCEDES Reviewed Notes: Allergies Allergies: Coded Allergies: Aspirin (Verified Allergy, Unknown, rash, 09/17/22) Penicillins (Verified Allergy, Unknown, 06/18/24) Home Meds Active Scripts Donepezil Hydrochloride (Aricept) 5 Mg Tab, 5 MG PO DAILY, #30 TAB Prov:RICARDO PONCE MD 11/21/22 Escitalopram Oxalate (Lexapro) 10 Mg Tab, 1 TAB PO DAILY, #30 TAB 1 Refill Prov:RICARDO PONCE MD 11/21/22 Furosemide (Lasix) 40 Mg Tab, 40 MG PO DAILYP PRN, #30 TAB for leg swelling or shorness of breath Prov:RICARDO PONCE MD 11/21/22 Ranolazine (Ranexa) 500 Mg Tab, 500 MG PO BID, #60 TAB Prov:RICARDO PONCE MD 11/21/22 Clopidogrel Bisulfate (CLOPIDOGREL) 75 Mg Tab, 75 MG PO DAILY, #30 TAB Prov:RICARDO PONCE MD 11/21/22 Benazepril Hcl (Benazepril Hcl) 20 Mg Tab, 20 MG PO DAILY, #60 TAB Prov:RICARDO PONCE MD 11/21/22 Reported Medications Insulin Glargine (Lantus Solostar) 100 Unit/Ml Inj, 50 UNIT SC DAILY for 90 Days, #45 05/19/24 Hydroxyzine Pamoate (Hydroxyzine Pamoate) 25 Mg Cap, 1 CAP PO TID for 30 Days, #90 05/19/24 Quetiapine Fumarate (Quetiapine Fumarate ER) 50 Mg Tab, 2 TAB PO HS for 30 Days, #60 05/19/24 Atorvastatin Calcium (ATORVASTATIN CALCIUM) 10 Mg Tab, 1 TAB PO DAILY 09/14/22 Information Source: Patient, Emergency Med Personnel Mode of Arrival: EMS Past Medical History PAST MEDICAL HISTORY: COPD, CVA, DM, High Lipids, HTN, [place] Surgical History: PTCA Family History Family History: Reviewed,noncontributory to illness Social History Smoker: Non-Smoker Alcohol: Denies ETOH Use Drugs: Denies Drug Use Lives In: Home Was a procedure done? Was a procedure done?: No CP Differential Dx Differential Diagnosis: N/A Differential Diagnosis: Angina, Chest Wall Pain, Costochondritis, Pericarditis, Other (Ddx include but not limitied to gastritis, musculoskeletal pain, radiculopathy, atypical chest pain, dissection, aneurysm, ACS, unstable angina, hiatal hernia, GERD, anxiety, costochondritis, PE, pneumothroax, neoplasm, cardiac ischemia, drug abuse, anemia.) X-Ray, Labs, Meds, VS Vital Signs Date Time Temp Pulse Resp B/P (MAP) Pulse Ox O2 Delivery O2 Flow Rate FiO2 06/18/24 15:03 49 06/18/24 12:41 48 06/18/24 11:53 98.0 50 18 144/56 (85) 98 06/18/24 11:53 50 Lab Test 06/18/24 15:52 06/18/24 13:41 06/18/24 12:25 Range/Units Troponin I High Sensitivity 7 8 7 </=54 ng/L White Blood Count 8.7 4.4-10.8 10^3/uL Red Blood Count 5.11 4.5-5.90 10^6/uL Hemoglobin 15.6 13.5-17.5 g/dL Hematocrit 46.6 41.0-53.0 % Mean Corpuscular Volume 91.1 80.0-100.0 fL Mean Corpuscular Hemoglobin 30.6 28.0-32.0 pg Mean Corpuscular Hemoglobin Concent 33.6 32.0-36.0 g/dL Red Cell Distribution Width 14.2 11.8-14.3 % Platelet Count 220 140-450 10^3/uL Mean Platelet Volume 9.6 6.9-10.8 fL Neutrophils (%) (Auto) 60.1 37.0-80.0 % Lymphocytes (%) (Auto) 28.4 10.0-50.0 % Monocytes (%) (Auto) 8.2 0.0-12.0 % Eosinophils (%) (Auto) 2.5 0.0-7.0 % Basophils (%) (Auto) 0.8 0.0-2.0 % Neutrophils # (Auto) 5.3 1.6-8.6 10 ^3/uL Lymphocytes # (Auto) 2.5 0.4-5.4 10 ^3/uL Monocytes # (Auto) 0.7 0-1.3 10 ^3/uL Eosinophils # (Auto) 0.2 0-0.8 10 ^3/uL Basophils # (Auto) 0.1 0-0.2 10 ^3/uL Nucleated Red Blood Cells 0.2 % Prothrombin Time 11.4 9.3-11.8 sec Prothrombin Time INR 1.08 0.9-1.15 Activated Partial Thromboplast Time 27.6 24.5-34.5 SEC Sodium Level 142 136-145 mmol/L Potassium Level 4.5 3.5-5.1 mmol/L Chloride Level 106 98-107 mmol/L Carbon Dioxide Level 31 20-31 mmol/L Anion Gap 5 5-15 Blood Urea Nitrogen 16 9-23 mg/dL Creatinine 0.98 0.700-1.30 mg/dL Glomerular Filtration Rate Calc 78 >90 mL/min BUN/Creatinine Ratio 16.3 10.0-20.0 Serum Glucose 85 74-106 mg/dL Calcium Level 9.3 8.7-10.4 mg/dL Magnesium Level 2.2 1.6-2.6 mg/dL Total Bilirubin 0.6 0.2-1.0 mg/dL Aspartate Amino Transferase (AST) 37 13-40 U/L Alanine Aminotransferase (ALT) 63 H 7-40 U/L Alkaline Phosphatase 133 H 46-116 U/L B-Type Natriuretic Peptide 122.74 0-100 pg/mL Total Protein 6.4 5.7-8.2 g/dL Albumin 4.2 3.2-4.8 g/dL Current Medications Medications (Trade) Dose Ordered Sig/Vanessa Route Start Time Stop Time Status Last Admin Acetaminophen/ Hydrocodone Bitart ([place] 5/325MG Tab) 1 tab Q6HPRN PRN PO 06/18/24 20:30 06/18/24 22:08 [place] [id number] Ph: [phone] DIAGNOSTIC IMAGING Diagnostic Imaging Report : [id number] Signed PATIENT: ELISSA RANDOLPH ACCT: [id number] UNIT: [id number] : 1945 LOC: ER ROOM / BED: / AGE / SEX: 78 / M ADM STATUS: REG ER SERVICE 1231 ORDERING PHYSICIAN: GINI DYE DO PROCEDURE(s): CXRP - CHEST PORTABLE REASON: CP ORDER NUMBER(s): [id number], ACCESSION NUMBER(s): [id number] EXAM: XY CHEST PORTABLE Indication: CP Technique: Single frontal view of the chest was obtained Comparison: XY CHEST PORTABLE on DOS: 05/18/24, CHEST PORTABLE on DOS: 09/15/22, CXRP on DOS: 09/15/22, CHEST PORTABLE on DOS: 09/11/22, CXRP on DOS: 09/11/22 FINDINGS: Lines and Tubes: None Lungs: No focal consolidation. Pleura: No effusion. No pneumothorax. Cardiomediastinal contours: Unremarkable Bones: No acute osseous abnormality. IMPRESSION: No acute cardiopulmonary disease. ATED BY: TONA CASTELLANO MD DICTATED DATE/TIME: 06/18/24 1303 SIGNED BY: TONA CASTELLANO MD SIGNED DATE/TIME: 06/18/24 130 CC: Time of 1ST Reevaluation: 12:08 Reevaluation 1ST: Unchanged Time of 2ND Reevaluation: 20:14 (The case was discussed with the admitting team (HPI, physical exam, labs and diagnostic tests that were available at the time of disposition, ED course, treatment plan) on the phone. They agreed to admit the patient to their service and assume care of this patient from this point f orward. AUGUSTO Kirk) Patient Education/Counseling: Diagnosis, Treatment Family Education/Counseling: No Family Present Comments Patient presented with the above HPI.--cardiac---workup was initiated. patient was found with the above mentioned diagnosis. Patient was given: nitroglycerin but no aspirin because patient is allergic Patient ED course and VS have been stabilized. Patient has been reassessed in the ED and remained in a stable condition. Patient has been observed in the ED adequate length of time to insure improvement/stability. patient was admitted to the medicine team for further evaluation and treatment of their presentation. All the reports of any imaging studies that were ordered by myself were reviewed by myself. Departure 1 Departure Time of Disposition: 12:42 Impression: Primary Impression: Chest pain Additional Impression: Bradycardia Disposition: ADMITTED INPATIENT Admit to: Tele Condition: Guarded Discharged With: Self Critical Care Note Critical Care Time?: No Heart Score Heart Score: Heart Score Response (Comments) Value History Slightly Suspicious 0 EKG Normal 0 Age >65 2 Risk Factors 1 or 2 risk factors 1 Troponin Normal limit 0 Total 3 I personally scribed for GINI DYE DO ([email or web address]) on 06/18/24 at 12:17. Electronically submitted by Ryanne Carrillo ([facility]). I personally scribed for GINI DYE DO ([email or web address]) on 06/18/24 at 15:45. Electronically submitted by Ryanne Carrillo ([facility] I personally scribed for GINI DYE DO ([email or web address]) on 06/18/24 at 16:17. Electronically submitted by Ryanne Carrillo ([facility]). GINI DYE DO Jun 18, 2024 12:17
[2024-06-18 12:40] LABS: Basophils # (auto) 0.1 10 ^3/uL (0-0.2); Basophils % (auto) 0.8 % (0.0-2.0); Eosinophils # (auto) 0.2 10 ^3/uL (0-0.8); Eosinophils % (auto) 2.5 % (0.0-7.0); Hematocrit 46.6 % (41.0-53.0); Hemoglobin 15.6 g/dL (13.5-17.5); Lymphocytes # (auto) 2.5 10 ^3/uL (0.4-5.4); Lymphocytes % (auto) 28.4 % (10.0-50.0); Mean Corpuscular Hemoglobin 30.6 pg (28.0-32.0); Mean Corpuscular Hgb Conc. 33.6 g/dL (32.0-36.0); Mean Corpuscular Volume 91.1 fL (80.0-100.0); Monocytes # (auto) 0.7 10 ^3/uL (0-1.3); Monocytes % (auto) 8.2 % (0.0-12.0); Neutrophils # (auto) 5.3 10 ^3/uL (1.6-8.6); Neutrophils % (auto) 60.1 % (37.0-80.0); Nucleated Red Blood Cells % 0.2 %; Platelet Count (auto) 220 10^3/uL (140-450); Red Blood Cells 5.11 10^6/uL (4.5-5.90); Red Cell Distribution Width 14.2 % (11.8-14.3); White Blood Cell 8.7 10^3/uL (4.4-10.8)
--- NOTE | 2024-06-18 13:04 | DVH ---
EXAM: XY CHEST PORTABLE Indication: CP Technique: Single frontal view of the chest was obtained Comparison: XY CHEST PORTABLE on DOS: 05/18/24, CHEST PORTABLE on DOS: 09/15/22, CXRP on DOS: 09/15/22, CHEST PORTABLE on DOS: 09/11/22, CXRP on DOS: 09/11/22 FINDINGS: Lines and Tubes: None Lungs: No focal consolidation. Pleura: No effusion. No pneumothorax. Cardiomediastinal contours: Unremarkable Bones: No acute osseous abnormality. IMPRESSION: No acute cardiopulmonary disease.
[2024-06-18 13:06] LABS: Alanine Aminotransferase 63 U/L (7-40); Albumin 4.2 g/dL (3.2-4.8); Alkaline Phosphatase 133 U/L (46-116); Anion Gap 5 (5-15); Aspartate Aminotransferase 37 U/L (13-40); BUN/Creatinine Ratio 16.3 (10.0-20.0); Blood Urea Nitrogen 16 mg/dL (9-23); Calcium 9.3 mg/dL (8.7-10.4); Carbon Dioxide 31 mmol/L (20-31); Chloride 106 mmol/L (98-107); Glucose 85 mg/dL (74-106); Magnesium 2.2 mg/dL (1.6-2.6); Potassium 4.5 mmol/L (3.5-5.1); Sodium 142 mmol/L (136-145)
[2024-06-18 13:07] LABS: Bilirubin, Total 0.6 mg/dL (0.2-1.0); Total Protein 6.4 g/dL (5.7-8.2)
[2024-06-18 13:12] LABS: INR 1.08 (0.9-1.15); Partial Thromboplastin Time 27.6 SEC (24.5-34.5); Prothrombin Time 11.4 sec (9.3-11.8)
--- NOTE | 2024-06-18 19:10 | ECG ---
[facility] Test Date: 2024-06-18 Test Time: 11:51:02 Pat Name: ELISSA RANDOLPH Department: ED Room: 0219T Gender: M Paid Search Manager: MM : 1945 Requested By: GINI DYE Order Number: [id number] Reading MD: Crescencio Maldonado Measurements Intervals [place] Rate: 50 P: 71 GA: 165 QRS: 123 QRSD: 108 T: 32 QT: 444 QTc: 405 Interpretive Statements Sinus rhythm Right axis deviation Anteroseptal infarct, old Electronically Signed On 06-19-2024 17:44:32 PST by Crescencio Maldonado Please click the below link to view image of tracing.
--- NOTE | 2024-06-18 19:10 | ECG ---
[facility] Test Date: 2024-06-18 Test Time: 12:38:13 Pat Name: ELISSA RANDOLPH Department: ED Room: 0219T Gender: M Passport Support Manager: LOREN : 1945 Requested By: GINI DYE Order Number: [id number] Reading MD: Crescencio Maldonado Measurements Intervals [place] Rate: 48 P: 47 [place]: 161 QRS: -16 QRSD: 105 T: 116 QT: 424 QTc: 379 Interpretive Statements Sinus bradycardia Borderline left axis deviation RSR' in V1 or V2, probably normal variant Probable anteroseptal infarct, old Nonspecific T abnormalities, lateral leads Electronically Signed On 06-19-2024 17:44:45 PST by Crescencio Maldonado Please click the below link to view image of tracing.
--- NOTE | 2024-06-18 19:11 | ECG ---
[facility] Test Date: 2024-06-18 Test Time: 14:44:27 Pat Name: ELISSA RANDOLPH Department: ED Room: 0219T Gender: M Esthetician Facialist: LOREN : 1945 Requested By: GINI DYE Order Number: [id number] Reading MD: Crescencio Maldonado Measurements Intervals [place] Rate: 49 P: 85 ID: [id number] QRS: -16 QRSD: 116 T: 86 QT: 451 QTc: 408 Interpretive Statements Sinus bradycardia Incomplete right bundle branch block Consider anterior infarct Nonspecific T abnormalities, lateral leads Electronically Signed On 06-19-2024 17:45:22 PST by Crescencio Maldonado Please click the below link to view image of tracing.
[2024-06-18] MEDS ORDERED: NITROGLYCERIN 0.4 MG SL TAB SL PRN (20:30)
[2024-06-18] MEDS ORDERED: ONDANSETRON HCL 4 MG/2 ML VIAL IV PRN (20:30)
[2024-06-18] MEDS ORDERED: ACETAMINOPHEN 325 MG TAB PO PRN (20:30)
[2024-06-18] MEDS ORDERED: MORPHINE SULFATE INJ 2 MG/ml SYRG IV PRN (20:30)
[2024-06-18] MEDS: HYDROcodone-ACET 5/325MG TAB PO PRN (22:08)
[2024-06-18] MEDS: ATORVASTATIN 20 MG TAB PO SCH (22:08)
[2024-06-18] MEDS: NITROGLYCERIN 0.4 MG SL TAB SL ONE (22:09)
[2024-06-19] VITALS (9 sets, daily range): BP systolic 108–147; BP diastolic 50–79; PULSE 43–72; RESP 17–18; TEMP 97.6–98.4; O2SAT 92–100
--- NOTE | 2024-06-19 00:50 | DVHHP2 ---
Admitting Diagnosis: Chest pain, bradycardia History of Present Illness History Source: Patient Exam Limitations: No limitations HPI Mr. Fab Pruitt is an 78 yo male with a history of CABG, CVA, PTCA, Hyperlipidemia, Dementia who presents with a chief complaint of chest pain. Patient endorses midsternal chest pain radiating to his back onset x 3 days. Patient reports associated nausea with no vomiting. Patient denies abdominal pain, diarrhea, constipation, headaches, dizziness, blurry vision, fevers, chills. Patient with heart score of 5. Patient admitted for further evaluation. Home Meds Active Scripts Donepezil Hydrochloride (Aricept) 5 Mg Tab, 5 MG PO DAILY, #30 TAB Prov:RICARDO PONCE MD 11/21/22 Escitalopram Oxalate (Lexapro) 10 Mg Tab, 1 TAB PO DAILY, #30 TAB 1 Refill Prov:RICARDO PONCE MD 11/21/22 Furosemide (Lasix) 40 Mg Tab, 40 MG PO DAILYP PRN, #30 TAB for leg swelling or shorness of breath Prov:RICARDO PONCE MD 11/21/22 Ranolazine (Ranexa) 500 Mg Tab, 500 MG PO BID, #60 TAB Prov:RICARDO PONCE MD 11/21/22 Clopidogrel Bisulfate (CLOPIDOGREL) 75 Mg Tab, 75 MG PO DAILY, #30 TAB Prov:RICARDO PONCE MD 11/21/22 Benazepril Hcl (Benazepril Hcl) 20 Mg Tab, 20 MG PO DAILY, #60 TAB Prov:RICARDO PONCE MD 11/21/22 Reported Medications Insulin Glargine (Lantus Solostar) 100 Unit/Ml Inj, 50 UNIT SC DAILY for 90 Days, #45 05/19/24 Hydroxyzine Pamoate (Hydroxyzine Pamoate) 25 Mg Cap, 1 CAP PO TID for 30 Days, #90 05/19/24 Quetiapine Fumarate (Quetiapine Fumarate ER) 50 Mg Tab, 2 TAB PO HS for 30 Days, #60 05/19/24 Atorvastatin Calcium (ATORVASTATIN CALCIUM) 10 Mg Tab, 1 TAB PO DAILY 09/14/22 Past Medical History Cardiac: HTN, Hyperlipidemia Pulmonary: No pertinent Hx Central Nervous System: CVA, Dementia GI: No pertinent Hx Hemotology/Oncology: No pertinent Hx Hepatobiliary: No pertinent Hx Psychiatric: No pertinent Hx Musculoskeletal: No pertinent Hx Rheumotologic: No pertinent Hx Infectious Disease: No peritnent Hx ENT: No pertinent Hx Renal/: No pertinent Hx Endocrine: No pertinent Hx Dermatology: No pertinent Hx Past Surgical History: CABG Patient Family History: Patient reports no known family medical history. Smoker: No Hx (Negative) Alocohol: None Drugs: None Lives with: With family Domestic Violence: Neg Review of Systems Constitutional: No symptom reported Ears, Nose, & Throat: No symptom reported Eyes: No symptom reported Pulmonary/Respiratory: No symptom reported Cardiovascular: Chest Pain Gastrointestinal: Nausea Genitourinary: No symptom reported Musculoskeletal: Back pain Skin: No symptom reported Psychiatric: No symptom reported Endocrine: No symptom reported Hemotologic/Lymphatic: No symptom reported H&P Exam Vital Signs Vital Signs Date Time Temp Pulse Resp B/P (MAP) Pulse Ox O2 Delivery O2 Flow Rate FiO2 06/18/24 23:25 Room Air* 0 21 06/18/24 21:26 98.0 61 12 138/98 (111) 99 98.0 General Appeara: Well developed, Well nourished, Normal Appearance Head Exam: Normal inspection Neck Exam: Normal inspection, Non-tender, Normal alignment Eye Exam: bilateral eye Normal inspection, bilateral eye PERRL, bilateral eye EOMI Ear Exam: bilateral ear Auricle normal Nasal Exam: Normal inspection Mouth: Normal Inspection Pulmonary/Respiratory: Normal inspection, Normal breath sounds, Chest non- tender, Lungs clear Cardiovascular/Chest: Normal inspection, Regular rate, Normal Rhythm Peripheral Pulses: 2+ dorsalis pedis (R), 2+ dorsalis pedis (L), 2+ Radial (R), 2+ Radial (L) Abdominal Exam: Normal bowel sounds, Soft Rectal Exam: Deferred Back Exam: Normal inspection Pelvic Exam: 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 Exam: Normal hearing, Normal speech, PERRL Motor/Sensory: Normal sensory function, Normal motor function Neuro/Mental St: Alert, Oriented Appearance: Appropriate appearance, Appropriate insight Eye contact/ Speech: Cooperative, Good eye contact, Normal speech Thoughts/Psych: Normal thought pattern, Auditory hallucinations Skin Exam: Normal inspection, Normal color, Warm/dry, Other (healed mid sternal incision ) Labs/Xrays Labs Test 06/18/24 20:51 06/18/24 12:25 Range/Units Troponin I High Sensitivity 5 </=54 ng/L White Blood Count 8.7 4.4-10.8 10^3/uL Red Blood Count 5.11 4.5-5.90 10^6/uL Hemoglobin 15.6 13.5-17.5 g/dL Hematocrit 46.6 41.0-53.0 % Mean Corpuscular Volume 91.1 80.0-100.0 fL Mean Corpuscular Hemoglobin 30.6 28.0-32.0 pg Mean Corpuscular Hemoglobin Concent 33.6 32.0-36.0 g/dL Red Cell Distribution Width 14.2 11.8-14.3 % Platelet Count 220 140-450 10^3/uL Mean Platelet Volume 9.6 6.9-10.8 fL Neutrophils (%) (Auto) 60.1 37.0-80.0 % Lymphocytes (%) (Auto) 28.4 10.0-50.0 % Monocytes (%) (Auto) 8.2 0.0-12.0 % Eosinophils (%) (Auto) 2.5 0.0-7.0 % Basophils (%) (Auto) 0.8 0.0-2.0 % Neutrophils # (Auto) 5.3 1.6-8.6 10 ^3/uL Lymphocytes # (Auto) 2.5 0.4-5.4 10 ^3/uL Monocytes # (Auto) 0.7 0-1.3 10 ^3/uL Eosinophils # (Auto) 0.2 0-0.8 10 ^3/uL Basophils # (Auto) 0.1 0-0.2 10 ^3/uL Nucleated Red Blood Cells 0.2 % Prothrombin Time 11.4 9.3-11.8 sec Prothrombin Time INR 1.08 0.9-1.15 Activated Partial Thromboplast Time 27.6 24.5-34.5 SEC Sodium Level 142 136-145 mmol/L Potassium Level 4.5 3.5-5.1 mmol/L Chloride Level 106 98-107 mmol/L Carbon Dioxide Level 31 20-31 mmol/L Anion Gap 5 5-15 Blood Urea Nitrogen 16 9-23 mg/dL Creatinine 0.98 0.700-1.30 mg/dL Glomerular Filtration Rate Calc 78 >90 mL/min BUN/Creatinine Ratio 16.3 10.0-20.0 Serum Glucose 85 74-106 mg/dL Calcium Level 9.3 8.7-10.4 mg/dL Magnesium Level 2.2 1.6-2.6 mg/dL Total Bilirubin 0.6 0.2-1.0 mg/dL Aspartate Amino Transferase (AST) 37 13-40 U/L Alanine Aminotransferase (ALT) 63 H 7-40 U/L Alkaline Phosphatase 133 H 46-116 U/L B-Type Natriuretic Peptide 122.74 0-100 pg/mL Total Protein 6.4 5.7-8.2 g/dL Albumin 4.2 3.2-4.8 g/dL Assessment/Plan Problem List: (1) Chest pain (2) Bradycardia Plan 78 yo male with known history of CABG, CVA, hyperlipidemia, PTCA, Dementia presets to the hospital with chest pain. Patient with heart score of 5. 1. Chest pain rule out ACS 2. Bradycardia 3. history of CABG 4. history of CVA 5. Dementia Admit Telemetry unit Cardiology consultation, 2D echo, serial troponin levels, ASA, Statin GI ppx DVT ppx Fall precautions Discussed all above with patient who verbalizes agreement and understanding of care plan. All questions were answered. Discussed assessment and care plan with supervising MD. Plan discussed with: Patient, Other Code Visit Code Visit Total Time (mins): 45 Additional Comments Additional Comments Additional Comments 78-year-old male with a known history of coronary artery disease status post CABG, Alzheimer dementia, hypertension initially presented to the hospital with chest pain found to have 1. Chest pain rule out [place] 2. Coronary artery disease status post CABG 3. Hypertension 4. Dementia -2D echo, cardiology consultation -discharge plan was cleared by Cardiology. PATRICIA QUEZADA Jun 19, 2024 00:50 ROBE LEYVA MD Jun 19, 2024 17:01
[2024-06-19] MEDS: ASPirin 81 mg TAB PO SCH (08:31)
[2024-06-19] MEDS: FAMOTIDINE 20 MG TAB PO SCH (10:33)
[2024-06-19] MEDS: ENOXAPARIN SOD 40 MG/0.4 ML SYRINGE SC SCH (10:33)
[2024-06-19 16:10] LABS: Urine Bacteria None Seen /hpf (None Seen)
[2024-06-19 16:38] LABS: Urine Blood Negative /uL (Negative); Urine Clarity Clear (Clear); Urine Color Yellow (Yellow); Urine Mucus FEW (None Seen); Urine Protein, UAD TRACE (Negative); Urine Specific Gravity 1.027 (1.001-1.035); Urine Urobilinogen Normal (Negative); Urine WBC 1 /hpf (0 - 3); Urine pH 5.5 (5.0-9.0)
--- NOTE | 2024-06-19 21:47 | DVHINCON2 ---
DATE OF CONSULTATION: 06/19/2024 REFERRING PHYSICIAN: Dr. Adam. CONSULTING PHYSICIAN: Dr. Saleh. INDICATION: Chest pain, bradycardia. HISTORY OF PRESENT ILLNESS: The patient is an 78-year-old male with history of coronary artery disease, status post CABG in 2022 at an outside hospital, a history of stroke, presented to the hospital initially with complaints of chest pain. The patient was noted to be bradycardic, heart rate in the 50s. The patient at the time of my evaluation was complaining of more abdominal pain radiating to his chest, sharp. IA has been ruled out, serial negative troponin. Currently, he is asymptomatic. PAST MEDICAL HISTORY: * History of CAD, status post CABG. * Hypertension. * Dementia. * Dyslipidemia. * History of stroke. MEDICATIONS: Per med rec. ALLERGIES: No known drug allergies. PHYSICAL EXAMINATION: GENERAL: Alert and awake, in no form of cardiopulmonary distress. VITAL SIGNS: Blood pressure 140/79, pulse 61 per minute, saturation 100%. HEENT: No carotid bruits. No jugular venous distention. CHEST: Bilateral air entry. CARDIOVASCULAR SYSTEM Precordial and carotid pulses palpable. Normal S1, S2. Regular rate and rhythm. No appreciable gallop, rubs, or clicks. EXTREMITIES: No peripheral edema. DIAGNOSTIC DATA: CBC is normal. Troponin negative x 4. Sodium 140, potassium 4.5, creatinine is 0.9. ASSESSMENT: * Chest/abdominal pain, atypical. Myocardial infarction has been ruled out, serial negative troponin, doubt acute coronary syndrome. * Bradycardia, asymptomatic, possibly iatrogenic. * History of coronary artery disease, status post coronary artery bypass graft. RECOMMENDATIONS: * Continue Plavix. THE PATIENT IS ALLERGIC TO ASPIRIN. * Continue statin therapy. * Obtain echo. * We will discontinue Ranexa, can cause bradycardia. * Avoid renetta blocking agents. * Continue color television console monitor. * If echo unremarkable, he may be discharged home with outpatient followup. Thank you for allowing me to participate in the care of this patient. Ofelia Saleh MD [facility] TID: [id number] RECEIPT: [id number]
[2024-06-20 01:00] VITALS: BP 134/67; PULSE 69; RESP 18; TEMP 98.2; O2SAT 94
[2024-06-20 05:00] VITALS: BP 139/64; PULSE 60; RESP 16; TEMP 98.6; O2SAT 100
[2024-06-20 07:11] VITALS: PULSE 51
[2024-06-20 09:00] VITALS: BP 135/64; PULSE 59; RESP 18; TEMP 97.9; O2SAT 99
[2024-06-20 13:00] VITALS: BP 150/54; PULSE 53; RESP 18; TEMP 97.4; O2SAT 100
--- NOTE | 2024-06-20 15:46 | DVHDS2 ---
Discharge Summary Date of Admission Jun 18, 2024 at 20:31 Date of Discharge: Jun 20, 2024 Labs/Diagnostic Data: Laboratory Results Test 06/19/24 15:30 06/19/24 14:10 06/18/24 12:25 Urine Color Yellow (Yellow) Urine Clarity Clear (Clear) Urine pH 5.5 (5.0-9.0) Urine Specific [place] 1.027 (1.001-1.035) Urine Protein Trace (Negative) Urine Ketones Negative (Negative) Urine Blood Negative /uL (Negative) Urine Nitrite Negative (Negative) Urine Bilirubin Negative (Negative) Urine Urobilinogen Normal mg/dL (Negative) Urine Leukocyte Esterase Negative /uL (Negative) Urine RBC 1 /hpf (0 - 3) Urine WBC 1 /hpf (0 - 3) Urine Squamous Epithelial Cells None seen /hpf (<5) Urine Bacteria None seen /hpf (None Seen) Urine Mucus Few (None Seen) Urine Glucose Normal mg/dL (Normal) Troponin I High Sensitivity 8 ng/L (</=54) White Blood Count 8.7 10^3/uL (4.4-10.8) Red Blood Count 5.11 10^6/uL (4.5-5.90) Hemoglobin 15.6 g/dL (13.5-17.5) Hematocrit 46.6 % (41.0-53.0) Mean Corpuscular Volume 91.1 fL (80.0-100.0) Mean Corpuscular Hemoglobin 30.6 pg (28.0-32.0) Mean Corpuscular Hemoglobin Concent 33.6 g/dL (32.0-36.0) Red Cell Distribution Width 14.2 % (11.8-14.3) Platelet Count 220 10^3/uL (140-450) Mean Platelet Volume 9.6 fL (6.9-10.8) Neutrophils (%) (Auto) 60.1 % (37.0-80.0) Lymphocytes (%) (Auto) 28.4 % (10.0-50.0) Monocytes (%) (Auto) 8.2 % (0.0-12.0) Eosinophils (%) (Auto) 2.5 % (0.0-7.0) Basophils (%) (Auto) 0.8 % (0.0-2.0) Neutrophils # (Auto) 5.3 10 ^3/uL (1.6-8.6) Lymphocytes # (Auto) 2.5 10 ^3/uL (0.4-5.4) Monocytes # (Auto) 0.7 10 ^3/uL (0-1.3) Eosinophils # (Auto) 0.2 10 ^3/uL (0-0.8) Basophils # (Auto) 0.1 10 ^3/uL (0-0.2) Nucleated Red Blood Cells 0.2 % Prothrombin Time 11.4 sec (9.3-11.8) Prothrombin Time INR 1.08 (0.9-1.15) Activated Partial Thromboplast Time 27.6 SEC (24.5-34.5) Sodium Level 142 mmol/L (136-145) Potassium Level 4.5 mmol/L (3.5-5.1) Chloride Level 106 mmol/L (98-107) Carbon Dioxide Level 31 mmol/L (20-31) Anion Gap 5 (5-15) Blood Urea Nitrogen 16 mg/dL (9-23) Creatinine 0.98 mg/dL (0.700-1.30) Glomerular Filtration Rate Calc 78 mL/min (>90) BUN/Creatinine Ratio 16.3 (10.0-20.0) Serum Glucose 85 mg/dL (74-106) Calcium Level 9.3 mg/dL (8.7-10.4) Magnesium Level 2.2 mg/dL (1.6-2.6) Total Bilirubin 0.6 mg/dL (0.2-1.0) Aspartate Amino Transferase (AST) 37 U/L (13-40) Alanine Aminotransferase (ALT) 63 U/L (7-40) Alkaline Phosphatase 133 U/L (46-116) B-Type Natriuretic Peptide 122.74 pg/mL (0-100) Total Protein 6.4 g/dL (5.7-8.2) Albumin 4.2 g/dL (3.2-4.8) Other Laboratory Tests 06/18/24 12:25 Brief Hx & Hospital Course: 78-year-old male with a known history of coronary artery disease status post CABG, Alzheimer dementia, hypertension initially presented to the hospital with chest pain eventually monitored on telemetry floor. Patient [place] has been ruled out with negative cardiac markers. Patient was probably has costochondritis. Patient does have known history of coronary artery disease status post CABG. Patient does have underlying Alzheimer dementia. Cardiology agree with the patient to be discharged. Patient was recommended to follow up with the PCP and Cardiology as an outpatient. Home health home safety evaluation upon discharge. Condition at Discharge: Stable Final Diagnosis/Problems List 78-year-old male with a known history of coronary artery disease status post CABG, Alzheimer dementia, hypertension initially presented to the hospital with chest pain found to have 1. Chest pain ruled out [place] 2. Coronary artery disease status post CABG 3. Hypertension 4. Dementia -2D echo, cardiology consultation -discharge plan was cleared by Cardiology. Discharge Disposition: Home with Health Services SNF Discharge Will this Physician continue t: No Discharge Instruct/Medications Diet: Cardiac 2g Na,low cholest Diet comment: 1800 ada diet Activity: No Restrictions, As Tolerated Follow Up/Referral: f/u pcp and cardiology in 1-2 weeks Discharge Statement: "Patient was advised to return to the ER or call 911 if any headaches, dizziness, shortness of breath, chest pain, abdominal pain, bleeding, fevers, or worsening of medical condition. Patient was counseled about treatment plan, medications, possible side effects, patientverbalized understanding. All questions were answered to the best of my ability. This discharge took greater then 30 minutes in planning, reviewing documentation, counseling the patient, and discussing with other team members." ASSESSMENT ASSESSMENT Assessment 78-year-old male with a known history of coronary artery disease status post CABG, Alzheimer dementia, hypertension initially presented to the hospital with chest pain found to have 1. Chest pain ruled out [place] 2. Coronary artery disease status post CABG 3. Hypertension 4. Dementia -2D echo, cardiology consultation -discharge plan was cleared by Cardiology. Date of Service: Jun 20, 2024 Billing Provider: ROBE LEYVA MD Common Visit Codes: NOT BILLABLE ROBE LEYVA MD Jun 20, 2024 15:46
== END 2024-06-20 16:20 | disposition home health service (06) | DRG 206 ==
LOC: EDBD 11:49 → ER 11:49 → TELE 20:31 → TELE-CENTR 23:48
PROVIDERS: ADMIT Nurse Practitioner Family; ATTEND Internal Medicine
DX: M94.0 Chondrocostal junction syndrome [Tietze] (principal); E11.9 Type 2 diabetes mellitus without complications; E78.5 Hyperlipidemia, unspecified; I10 Essential (primary) hypertension; G30.9 Alzheimer's disease, unspecified; F02.80 Dementia in other diseases classified elsewhere, unspecified severity, without behavioral disturbance, psychotic disturbance, mood disturbance, and anxiety; J44.9 Chronic obstructive pulmonary disease, unspecified; I25.10 Atherosclerotic heart disease of native coronary artery without angina pectoris; Z95.1 Presence of aortocoronary bypass graft; Z86.73 Personal history of transient ischemic attack (TIA), and cerebral infarction without residual deficits; Z79.899 Other long term (current) drug therapy; Z79.4 Long term (current) use of insulin
CPT/HCPCS: 36415; 71045; 80053; 81001; 83735; 83880; 84484; 85025; 85610; 85730; 93005; 97163; G0378